=== PATIENT | female | born 1930 | race Caucasian/White ===

== ENCOUNTER 2016-05-22 15:55 | Outpatient (CLI) | payer MEDICARE, OTHER ==
[2015-10-16 20:56] VITALS: BP 167/57
== END 2016-05-22 15:56 ==
LOC: LAB 15:55
PROVIDERS: ATTEND Clinical Nurse Specialist Medical-Surgical
DX: M81.0 Age-related osteoporosis without current pathological fracture (principal); E55.9 Vitamin D deficiency, unspecified; R26.9 Unspecified abnormalities of gait and mobility
CPT/HCPCS: 36415; 82306; 82310

== ENCOUNTER 2016-07-19 10:16 | Outpatient (CLI) | payer MEDICARE, OTHER ==
[2016-06-19 16:29] VITALS: BP 129/41
[2016-07-19 11:14] LABS: eGFR (African) > 60; eGFR (Non-African) > 60
== END 2016-07-19 10:17 ==
LOC: LAB 10:16
PROVIDERS: ATTEND Family Medicine
DX: E03.9 Hypothyroidism, unspecified (principal); I10 Essential (primary) hypertension
CPT/HCPCS: 36415; 80053; 80061; 84443

== ENCOUNTER 2016-12-27 12:28 | Outpatient (CLI) | payer MEDICARE, OTHER ==
[2016-06-19 16:29] VITALS: BP 129/41
[2016-12-27 20:31] LABS: TOTAL PROTEIN 6.3 g/dL (6.0-8.5)
== END 2016-12-27 12:30 ==
LOC: LAB 12:28
PROVIDERS: ATTEND Clinical Nurse Specialist Medical-Surgical
DX: M81.0 Age-related osteoporosis without current pathological fracture (principal); E55.9 Vitamin D deficiency, unspecified; R26.9 Unspecified abnormalities of gait and mobility
CPT/HCPCS: 36415; 80053; 82306

== ENCOUNTER 2017-06-21 16:04 | Emergency (ER) | payer MEDICARE, OTHER ==
--- NOTE | 2017-06-21 17:02 | ED Physician Documentation ---
General Adult - HISTORIAN Historian: patient, other (family member (daughter)) - HPI Stated Complaint: seeing things that are not there Chief Complaint: General Adult Onset: days ago (1) Timing: still present Severity: moderate Further Comments: yes (Pt is an 86 yo female who has been having hallucinations that began about 1 am. Pt was her normal self at midnight, but then awoke and was seeing things, which caused her to become agitated. Pt had an episode similar to this one year ago that lasted about 3 days. She has also had brief similar episodes that resolved quickly with reassurance from family. Pt has hx Meniere's dz, Sleep apnea on cpap, and has had short-term memory loss. Pt has hx Glaucoma with R eye blindness. Pt had a work up for similar presentation a year ago that included head CT, abg, and other blood work. Pt is followed at 6- month intervals with carotid u/s. Pt is on Exalon and Aricept for dementia.) - ROS CONST: no problems EYES/ENT: other (R eye blindness 2nd to glaucoma) CVS/RESP: none GI/: none MS/SKIN/LYMPH: other (shingles, affecting R hand and upper extremity, (at present)) NEURO/PSYCH: other (hallucinations) - PAST HX Past History: other (cardiac dz, dementia, Meniere's dz, shingles, sleep apnea on cpap, short-term memory loss, Glaucoma with R eye blindness) Allergies/Adverse Reactions: Allergies Allergy/AdvReac Type Severity Reaction Status Date / Time Sulfa (Sulfonamide Allergy Severe Tongue Verified 06/21/17 16:12 Antibiotics) Swelling brinzolamide [From Azopt] Allergy Verified 06/21/17 16:12 Home Medications: Ambulatory Orders Medication Instructions Recorded Aspirin [Chente] 81 mg PO DAILY u2 07/08/12 Gabapentin [Neurontin] 1 tab PO TID 06/12/15 Gabapentin [Neurontin] 2 tab PO HS 06/12/15 Vitamin B Complex/Folic Acid 1 tab PO D 06/12/15 [Super B Maxi Complex Caplet] Brimonidine Tartrate/Timolol 10 ml OP lft eye @ HS 07/20/15 [Combigan Eye Drops] Cholecalciferol (Vitamin D3) 2,000 unit PO DAILY u2 07/20/15 [Vitamin D-3] Multivitamin [Tab-A-Demond] 1 each PO DAILY 10/16/15 Vit C/E/Zn/Coppr/Lutein/Zeaxan 1 each PO D 10/16/15 [Preservision Areds 2 Softgel] Carboxymethylcellulose Sodium 15 ml OP DAILY 06/19/16 [Refresh Tears] Meclizine HCl [Antivert] 25 mg PO DAILY 06/19/16 Propylene Glycol/Peg 400/Pf 1 each OP QID 06/19/16 [Systane 0.3-0.4% Eye Drops] - SOCIAL HX Smoking History: non-smoker Alcohol Use: none Drug Use: none - FAMILY HX Family History: Yes (cardiac dz) - VITAL SIGNS Vital Signs: Vital Signs Temp Pulse Resp BP Pulse Ox 97.8 F 74 18 143/71 97 06/21/17 16:04 06/21/17 16:04 06/21/17 16:04 06/21/17 16:04 06/21/17 16:04 - REVIEWED ASSESSMENTS Nursing Assessment Reviewed: Yes Vitals Reviewed: Yes Progress - Progress Progress: ABG: pH 7.45; pCO2 45; pO2 74; HCO3 29.9; SaO2 96%. UDS, pos for TCA (pt on amitryptiline). Glucose elevated. Pt ate a sugary doughnut en route to ER. Rx Lidocaine 5% ointment (for shingles). Apply with swab to affected areas 2 or 3 times/day. Use smallest effective dose, shortest effective duration. Hallucinations possible progression of dementia. Daughter wishes for pt to be d /c'd to home, a familiar environment for pt, and to f/u with pcp on Saturday. Pt is pleasant and in no distress. ED Results Lab/Radiology - Orders Orders: ED Orders Category Date Time Status Place IV Lock 1T Care 06/21/17 16:49 Active ARTERIAL BLOOD GAS Stat Lab 06/21/17 Uncollected CBC/PLATELET/DIFF Routine Lab 06/21/17 Ordered CMP Routine Lab 06/21/17 Ordered UA [URINALYSIS] Routine Lab 06/21/17 Ordered UDS [DRUG SCREEN URINE MEDICAL ONLY] Routine Lab 06/21/17 Ordered General Adult Physical Exam - PHYSICAL EXAM GENERAL APPEARANCE: mild distress EENT: pharynx normal, other (R eye blindness; L eye normal) NECK: normal inspection, supple RESPIRATORY: no resp distress, chest non-tender, breath sounds normal CVS: reg rate & rhythm, heart sounds normal ABDOMEN: soft, no organomegaly, normal bowel sounds BACK: normal inspection, no CVA tenderness SKIN: other (lesions of shingles, healing, R hand and UE) EXTREMITIES: non-tender, normal range of motion, no evidence of injury NEURO: CN's nml as tested, motor nml, sensation nml, disoriented (disoriented to time) Discharge Clincal Impression: hallucinations, dementia Referrals: Rodney Burgos MD [Primary Care Provider] - Condition: Stable Disposition: 01 HOME, SELF-CARE Decision to Admit: NO Decision Time: 18:47
[2017-06-21 17:13] LABS: BASOPHILS % 0.4 (0.0-1.5); EOSINOPHILS % 1.8 % (0.0-6.8); MEAN CORPUSCULAR HEMOGLOBIN 33.1 pg (28.0-34.0); MEAN CORPUSCULAR VOLUME 100.6 fl (80.0-100.0); MONOCYTES % 4.2 % (0.0-11.0); NEUTROPHILS # 6.1 # k/uL (1.4-7.7)
[2017-06-21 17:30] LABS: eGFR (African) > 60; eGFR (Non-African) > 60
[2017-06-21 18:34] VITALS: BP 154/54
[2017-06-23 07:33] LABS: APPEARANCE,URINE CLEAR (CLEAR); COLOR,URINE YELLOW (YELLOW); OCCULT BLOOD,URINE NEGATIVE (NEGATIVE); UROBILINOGEN URINE 0.2 Eu (0.2-1.0)
[2017-06-24 11:07] LABS: ABG BASE EXCESS 6.4 (-2 - +2); ABG PH 7.45 (7.35-7.45)
== END 2017-06-21 18:36 | disposition home or self-care (01) ==
LOC: ED 16:04
DX: F03.90 Unspecified dementia, unspecified severity, without behavioral disturbance, psychotic disturbance, mood disturbance, and anxiety (principal); R44.2 Other hallucinations
CPT/HCPCS: 36600; 80053; 81002; 82803; 85025; 99282; 99283; S1016

== ENCOUNTER 2017-07-16 09:51 | Outpatient (CLI) | payer MEDICARE, OTHER ==
[2017-07-16 10:12] LABS: BASOPHILS % 0.6 (0.0-1.5); EOSINOPHILS % 2.5 % (0.0-6.8); MEAN CORPUSCULAR HEMOGLOBIN 33.6 pg (28.0-34.0); MEAN CORPUSCULAR VOLUME 101.8 fl (80.0-100.0); MONOCYTES % 4.4 % (0.0-11.0); NEUTROPHILS # 6.7 # k/uL (1.4-7.7)
[2017-07-16 10:34] LABS: eGFR (African) > 60; eGFR (Non-African) > 60
== END 2017-07-16 09:52 ==
LOC: LAB 09:51
PROVIDERS: ATTEND Family Medicine
DX: I25.10 Atherosclerotic heart disease of native coronary artery without angina pectoris (principal); E03.9 Hypothyroidism, unspecified
CPT/HCPCS: 36415; 80053; 80061; 84443; 85025

== ENCOUNTER 2018-01-02 13:46 | Outpatient (CLI) | payer MEDICARE, OTHER | END 2018-01-02 13:48 | LOC: LAB 13:46 | PROVIDERS: ATTEND Clinical Nurse Specialist Medical-Surgical | DX: M81.0 Age-related osteoporosis without current pathological fracture (principal); E55.9 Vitamin D deficiency, unspecified; R26.9 Unspecified abnormalities of gait and mobility | CPT/HCPCS: 36415; 82306; 82310 ==

== ENCOUNTER 2018-05-13 10:43 | Outpatient (CLI) | payer OTHER ==
--- NOTE | 2018-05-13 20:52 | Diagnostic Imaging Report ---
MARCIA COFFEY [facility] [address] [facility].[address] [address] Report Submission Date: May 13, 2018 1:18:40 PM ACCOUNTING COORDINATOR Patient Study Name: CLINT DUMONT Date: May 13, 2018 10:57:06 AM ACCOUNTING COORDINATOR Modality Type: DX Gender: F Description: CHEST 2VIEW : 28 Institution: [facility] Physician: MARCIA COFFEY Examination: PA and lateral chest. History: Evaluate lung gregg. Comparison exam: None provided. Findings: PA and lateral views of the chest demonstrates a prominent cardiac and mediastinal silhouette. Aortic arch vascular calcification. Chronic interstitial changes. Left cardiac apex haziness. Left-sided cardiac pacemaker. No blunting of the posterior sulci. Osteopenia and articular degenerative changes. Impression: Chronic parenchymal changes. Cardiac apex haziness. No posterior effusion. Correlation with older exam is recommended when become available. Electronically signed on May 13, 2018 1:18:40 PM ACCOUNTING COORDINATOR by: Sohail ROLDAN
== END 2018-05-13 11:10 ==
LOC: RAD 10:43
PROVIDERS: ATTEND Family Medicine
DX: J90 Pleural effusion, not elsewhere classified (principal)
CPT/HCPCS: 71046

== ENCOUNTER 2018-07-24 12:45 | Outpatient (CLI) | payer OTHER ==
[2018-07-24 13:04] LABS: BASOPHILS % 1.4 % (0.0-1.5); EOSINOPHILS % 2.3 % (0.0-6.8); MEAN CORPUSCULAR HEMOGLOBIN 32.2 pg (28.0-34.0); MONOCYTES % 6.8 % (0.0-11.0); NEUTROPHILS # 7.8 # k/uL (1.4-7.7)
[2018-07-24 13:47] LABS: eGFR (Non-African) > 60
== END 2018-07-24 12:47 ==
LOC: LAB 12:45
PROVIDERS: ATTEND Family Medicine
DX: I10 Essential (primary) hypertension (principal); I25.10 Atherosclerotic heart disease of native coronary artery without angina pectoris; E55.9 Vitamin D deficiency, unspecified; E03.9 Hypothyroidism, unspecified
CPT/HCPCS: 36415; 80053; 80061; 82306; 84443; 85025

== ENCOUNTER 2019-02-24 10:22 | Emergency (ER) | payer OTHER ==
--- NOTE | 2019-02-24 10:49 | ED Physician Documentation ---
Fall - HISTORIAN Historian: patient, child (Daughter) - [facility] Chief Complaint: Fall Additional Information: 88 year old female presents with bilateral wrist discomfort s/p fall 3 days ago. Daughter states that patient fell while up in the attic; patient has Alzheimers with episodes of confusion that can progress all day; she has 24 hour care. Onset: days ago (Saturday) Where: home Context: fell from standing r: mild Associated Symptoms:: no loss of consciousness Location of Pain/Injury: upper extremity Injury to Right Extremity: elbow, wrist, other (right humerus) Injury to Left Extremity: wrist - ROS CONST: no problems NEURO: denies: dizziness MS/SKIN/LYMPH: denies: weakness EYES/ENT: none CVS/RESP: none GI/: denies: nausea, vomiting - PAST HX Past History: cardiac disease, other (arthritis, HTN HLD, Angina, Spinal stenosis, pacemaker) Immunizations: UTD Allergies/Adverse Reactions: Allergies Allergy/AdvReac Type Severity Reaction Status Date / Time brinzolamide [From Azopt] Allergy Severe Throat Verified 02/24/19 10:57 Swelling Sulfa (Sulfonamide Allergy Severe Tongue Verified 02/24/19 10:57 Antibiotics) Swelling Home Medications: Ambulatory Orders Medication Instructions Recorded Aspirin [Chente] 81 mg PO DAILY u2 07/08/12 Gabapentin [Neurontin] 1 tab PO BID 06/12/15 Gabapentin [Neurontin] 2 tab PO HS 06/12/15 Vitamin B Complex/Folic Acid 1 tab PO D 06/12/15 [Super B Maxi Complex Caplet] Brimonidine Tartrate/Timolol 10 ml OP BID 07/20/15 [Combigan Eye Drops] Cholecalciferol (Vitamin D3) 5,000 unit PO DAILY u2 07/20/15 [Vitamin D-3] Multivitamin [Tab-A-Demond] 1 each PO DAILY 10/16/15 Vit C/E/Zn/Coppr/Lutein/Zeaxan 1 each PO D 10/16/15 [Preservision Areds 2 Softgel] Carboxymethylcellulose Sodium 15 ml OP DAILY 06/19/16 [Refresh Tears] Meclizine HCl [Antivert] 25 mg PO PRN PRN 06/19/16 Propylene Glycol/Peg 400/Pf 1 each OP QID 06/19/16 [Systane 0.3-0.4% Eye Drops] - SOCIAL HX Smoking History: non-smoker Alcohol Use: none Drug Use: none - FAMILY HX Family History: none - VITAL SIGNS Vital Signs: Vital Signs Temp Pulse Resp BP Pulse Ox 154/54 06/21/17 18:33 - REVIEWED ASSESSMENTS Nursing Assessment Reviewed: Yes Vitals Reviewed: Yes ED Results Lab/Radiology - Radiology Radiology Impressions: Exam:@ 2 views of the right elbow Indication: LEFT ARM PAIN AND BRUISING AFTER FALL 2 DAYS AGO (Hx) Findings:@ There is no fracture, dislocation or osseous destruction. There is joint space narrowing and hypertrophic spurring of the elbow joint. A joint effusion is not identified. If clinical symptoms persist follow up examination may be warranted to exclude an occult process. Impression: No acute osseous abnormality. Electronically signed on Feb 24, 2019 11:42:41 AM LIBRARY CIRCULATION CLERK by: Prasanth Briggs Exam:@ 3 views right wrist, 3 views left wrist Indication: BILATERAL WRIST PAIN AFTER FALL 2 DAYS AGO (Hx) Findings:@ In the right wrist, there is radiocarpal joint space narrowing. There is joint space narrowing and hypertrophic spurring of the basilar joint. There is joint space narrowing and hypertrophic spurring of the scaphotrapezial joint. There is no displaced fracture or dislocation. There is no osseous destruction. There is ulnar negative variance. There is chondrocalcinosis in the region of the triangular fibrocartilage complex. There is no intrinsic ligamentous disruption. In the left wrist, there is radiocarpal joint space narrowing. Chondrocalcinosis is present in the region of the triangular fibrocartilage complex. There is joint space narrowing and hypertrophic spurring at the basilar joint and scaphotrapezial joint. There is no displaced fracture or dislocation. There is no osseous destruction. There is no intrinsic ligamentous disruption. 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 If clinical symptoms persist follow up examination may be warranted to exclude an occult process. Impression: No acute osseous abnormality. Electronically signed on Feb 24, 2019 11:52:49 AM LIBRARY CIRCULATION CLERK by: Prasanth Briggs - Orders Orders: ED Orders Category Date Time Status BILAT WRISTS 3 VIEW [RAD] Stat Exams 02/24/19 Ordered ELBOW 2 VIEWS [RAD] Stat Exams 02/24/19 Ordered XRAY UPPER ARM BONE [HUMERUS 2 VIEWS OR MORE] [RAD] Exams 02/24/19 Ordered Stat Fall Physical Exam - Physical Exam General Appearance: no acute distress, alert Head: non-tender, no swelling, no obvious injury Neck: non-tender, painless ROM, trachea midline Eye: CAROL ENT: nml external inspection, no oral injury, airway nml Resp/CVS: chest non-tender, breath sounds nml, heart sounds nml Abdomen: soft Neuro: oriented x3, CN's nml as tested, sensation nml, motor nml, mood/affect nml, hand tapper nml, hand tapper symmetrical Skin: color nml, no rash Back: normal inspection Extremities: atraumatic, pelvis stable, hips non-tender, nml ROM, nml color/temp - Ruth Coma Score Eyes Open: Spontaneous Speech: Oriented Motor: Obeys Commands Discharge Clincal Impression: Fall from standing, Bilateral wrist pain Referrals: Rodney Burgos MD [Primary Care Provider] - 2 Days Additional Instructions: May use heating pad to affected areas; if patient allows Salonpas to affected areas May give Tylenol as needed for discomfort Follow up with PCP as needed Condition: Good Disposition: 01 HOME, SELF-CARE Decision to Admit: NO Decision Time: 11:55
[2019-02-24 10:56] VITALS: BP 119/47
--- NOTE | 2019-02-24 11:45 | Diagnostic Imaging Report ---
PATIENT MR#: [id number] PATIENT PATIENT NAME: CLINT DUMONT DATE OF : 1930 REFERRING PHYSICIAN: Beth Moore EXAM DATE: 02/24/2019 ACCESSION NUMBER: [id number] EXAM DESCRIPTION: BILAT WRISTS 3 VIEW Exam: 3 views right wrist, 3 views left wrist Indication: BILATERAL WRIST PAIN AFTER FALL 2 DAYS AGO (Hx) Findings: In the right wrist, there is radiocarpal joint space narrowing. There is joint space narrowing and hy pertrophic spurring of the basilar joint. There is joint space narrowing and hypertrophic spurring of the scaphotrapezial joint. There is no displaced fracture or dislocation. There is no osseous destruction. There is ulnar negative variance. There is chondrocalcinosis in the region of the triangular fibrocartilage complex. There is no intrinsic ligam entous disruption. In the left wrist, there is radiocarpal joint space narrowing. Chondrocalcinosis is present in the re gion of the triangular fibrocartilage complex. There is joint space narrowing and hypertrophic spurring at the ba silar joint and scaphotrapezial joint. There is no displaced fracture or dislocation. There is no osseous destruction . There is no intrinsic ligamentous disruption. 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 Prasanth Briggs Transcribed by: Transcribed Date: Electronically signed by: Dr. Prasanth Briggs Date signed: 02/24/2019 11:44:36 AM
--- NOTE | 2019-02-24 11:47 | Diagnostic Imaging Report ---
PATIENT MR#: [id number] PATIENT PATIENT NAME: CLINT DUMONT DATE OF : 1930 REFERRING PHYSICIAN: Beth Moore EXAM DATE: 02/24/2019 ACCESSION NUMBER: [id number] EXAM DESCRIPTION: ELBOW 2 VIEWS Exam: 2 views of the right elbow Indication: LEFT ARM PAIN AND BRUISING AFTER FALL 2 DAYS AGO (Hx) Findings: There is no fracture, dislocation or osseous destruction. There is joint space narrowing and hypertro phic spurring of the elbow joint. A joint effusion is not identified. If clinical symptoms persist follow up examination may be warranted to exclude an occult process. Impression: No acute osseous abnormality. Read by: Dr. Prasanth Briggs Transcribed by: Transcribed Date: Electronically signed by: Dr. Prasanth Briggs Date signed: 02/24/2019 11:46:36 AM
--- NOTE | 2019-02-24 11:57 | Diagnostic Imaging Report ---
PATIENT MR#: [id number] PATIENT PATIENT NAME: CLINT DUMONT DATE OF : 1930 REFERRING PHYSICIAN: Beth Moore EXAM DATE: 02/24/2019 ACCESSION NUMBER: [id number] EXAM DESCRIPTION: HUMERUS 2 VIEWS OR MORE Exam: Indication: LEFT ARM PAIN AND BRUISING AFTER FALL 2 DAYS AGO (Hx) / Findings: No acute fracture, subluxation, dislocation or other osseous abnormality is identified. If clinical symptoms persist follow up examination may be warranted to exclude an occult process. Impression: No acute osseous abnormality. Read by: Dr. Prasanth Briggs Transcribed by: Transcribed Date: Electronically signed by: Dr. Prasanth Briggs Date signed: 02/24/2019 11:56:36 AM
== END 2019-02-24 12:04 | disposition home or self-care (01) ==
LOC: ED 10:22
DX: M25.531 Pain in right wrist (principal); M25.532 Pain in left wrist; W19.XXXA Unspecified fall, initial encounter
CPT/HCPCS: 73060; 73070; 99282